=== PATIENT | female | born 1970 | race Two or more races ===

== ENCOUNTER 2019-11-30 11:14 | Outpatient (CLI) | payer OTHER ==
[~2019-11-30] VITALS: Ht 172.7 cm; Wt 84.8 kg
[2019-11-30] MEDS ORDERED: SINGULAIR 10MG10 MG PO (12:08)
[2019-11-30] MEDS ORDERED: ALLEGRA-D 24 H1 EACH PO (12:09)
[2019-11-30] MEDS ORDERED: DYMISTA NASAL S23 GM NASAL (12:09)
== END 2019-11-30 12:20 | disposition home or self-care (01) ==
LOC: OFIC 805 11:14
DX: J34.89 Other specified disorders of nose and nasal sinuses (principal); R09.81 Nasal congestion; R07.0 Pain in throat

== ENCOUNTER 2020-11-23 10:15 | Inpatient (IN) | payer OTHER ==
[~2020-11-23] VITALS: Ht 172.7 cm; Wt 85.7 kg
[~2020-11-23 10:15] MED LIST: ALLEGRA-D 24 H1 EACH PO; DYMISTA NASAL S23 GM NASAL; SINGULAIR 10MG10 MG PO
[2020-11-29] MEDS ORDERED: SPRINTEC 28 DA1 EACH (10:13)
[2020-12-02] MEDS ORDERED: NAPR500T14 PO (08:19)
[2020-12-02] MEDS ORDERED: Tylenol #3 PO (08:19)
== END 2020-12-02 09:42 | disposition home or self-care (01) | DRG 743 ==
LOC: O/R 11-29 05:54 → SURH 11-29 09:00 → OB/GYN 11-29 12:53
PROVIDERS: ADMIT Obstetrics & Gynecology; ATTEND Obstetrics & Gynecology
PROC: 0UT20ZZ Resection of Bilateral Ovaries, Open Approach (ICD-10-PCS; 2020-11-29)
PROC: 0UT70ZZ Resection of Bilateral Fallopian Tubes, Open Approach (ICD-10-PCS; 2020-11-29)
PROC: 0UQF0ZZ Repair Cul-de-sac, Open Approach (ICD-10-PCS; 2020-11-29)
PROC: 0UJD4ZZ Inspection of Uterus and Cervix, Percutaneous Endoscopic Approach (ICD-10-PCS; 2020-11-29)
PROC: 0TJB8ZZ Inspection of Bladder, Via Natural or Artificial Opening Endoscopic (ICD-10-PCS; 2020-11-29)
PROC: 0UT90ZZ Resection of Uterus, Open Approach (ICD-10-PCS; principal; 2020-11-29 09:00)
DX: D25.2 Subserosal leiomyoma of uterus (principal); N81.11 Cystocele, midline; N72 Inflammatory disease of cervix uteri; N80.1 Endometriosis of ovary; N83.299 Other ovarian cyst, unspecified side; N92.0 Excessive and frequent menstruation with regular cycle